=== PATIENT | female | born 1945 | race Native Hawaiian/Other Pacific Islander ===

== ENCOUNTER 2017-11-13 17:00 | Emergency (ER) | payer OTHER ==
[2017-11-13 17:16] VITALS: BP 167/75; PULSE 81; O2SAT 99
[2017-11-13] MEDS ORDERED: Oxycodone/Acetaminophen 5/325 mg Tab PO STA (19:48)
--- NOTE | 2017-11-13 19:52 | C.PDOC ---
History Of Present Illness 72 year old female, whose PMHx includes Diabetes, presents to the ED for evaluation of left rib pain which began after she sustained a fall yesterday. Patient states she was walking in her house when she slipped and fell down three steps. Her pain is worse with movement. Patient notes she hit the side of her head against the wall but denies loss of consciousness. Patient took Tylenol yesterday without help. She denies headache, dizziness, shortness of breath both prior/post fall. Time Seen by Provider: 11/13/17 17:31 Chief Complaint (Nursing): Medical Clearance History Per: Patient History/Exam Limitations: no limitations Onset/Duration Of Symptoms: Hrs Current Symptoms Are (Timing): Still Present Additional History Per: Patient Past Medical History Reviewed: Historical Data, Nursing Documentation, Vital Signs Vital Signs: Last Vital Signs Temp 98.6 F 11/13/17 19:52 Pulse 81 11/13/17 19:52 Resp 20 11/13/17 19:52 BP 167/75 H 11/13/17 19:52 Pulse Ox 99 11/13/17 22:01 - Medical History PMH: Diabetes Surgical History: No Surg Hx - [facility] TETANUS TOXOID ADMINIST (09/05/13) Family History: States: Unknown Family Hx - Social History Hx Tobacco Use: No Hx Alcohol Use: No Hx Substance Use: No - Immunization History Hx Tetanus Toxoid Vaccination: Yes Hx Influenza Vaccination: Yes Hx Pneumococcal Vaccination: No Review Of Systems Musculoskeletal: Positive for: Other (left rib pain ) Physical Exam - Physical Exam Appears: Non-toxic, No Acute Distress Skin: Normal Color, Warm, Dry Head: Atraumatic, Normacephalic Eye(s): bilateral: Normal Inspection Oral Mucosa: Moist Neck: Supple Chest: Symmetrical, No Deformity, Tenderness (to left posterolateral and anterior ribs ) Cardiovascular: Rhythm Regular, No Murmur Respiratory: Normal Breath Sounds, No Rales, No Rhonchi, No Wheezing Extremity: Normal ROM, Capillary Refill (less than 2 seconds ) Neurological/Psych: Oriented x3, Normal Speech, Normal Cognition ED Course And Treatment O2 Sat by Pulse Oximetry: 99 (on RA ) Pulse Ox Interpretation: Normal - Other Rad XR left ribs and AP chest X-Ray: Interpreted by Me, Viewed By Me, Read By Radiologist Interpretation: EXAM: XR Left Ribs and AP Chest, 3 or More Views. CLINICAL HISTORY: 72 years old, female; Pain; Chest wall pain; Left; Additional info: Hot wall, pain to left posterior and. ant ribs. TECHNIQUE: Frontal and oblique views of the left ribs and frontal view of the chest. COMPARISON: No relevant prior studies available. FINDINGS: Lungs: There is minimal left base atelectasis. Lungs are otherwise clear. Pleural space: Unremarkable. No pneumothorax. Heart: Unremarkable. No cardiomegaly. Mediastinum: Unremarkable. Bones/joints: Minimally displaced rib fractures are present on the left. These are noted involving the. sixth and seventh ribs. IMPRESSION: Displaced acute fractures of the left sixth and seventh ribs. No definite pneumothorax seen with this. technique. Left base atelectasis. Medical Decision Making Medical Decision Making: Progress: Left ribs and chest XR ordered and reviewed. Percocet PO and Toradol IM administered. pt much more comfortable after percocet. will dc with nsaids. percocet, incentive spirometer. discussed with Dr Sargent, she will f/u in his office this week Disposition Discussed With .: Sangita Sargent Doctor Will See Patient In The: Office Counseled Patient/Family Regarding: Studies Performed, Diagnosis, Need For Followup, Rx Given - Disposition Referrals: Sangita Sargent MD [Staff Provider] - Disposition: HOME/ ROUTINE Disposition Time: 20:22 Condition: IMPROVED Additional Instructions: Please take ibuprofen every 6 hours for pain. Take one tablet of Percocet every 4 hours if needed. Use incentive spirometer every 2 hours or more if tolerated. Follow up with Dr Sargent in the next few days. Return to ER for any worsening pain or difficulty breathing Prescriptions: Acetaminophen/Oxycodone Hydr [Oxycodone and Acetaminophen 325 mg-2.5 mg] 1 tab PO Q4 PRN #16 tab PRN Reason: Pain, Severe (8-10) Docusate Sodium [Colace] 100 mg PO BID #60 capsule Instructions: Rib Fracture (DC) Forms: General Discharge Instructions, [facility] ([place]), Work Excuse - Clinical Impression Clinical Impression: Ribs, multiple fractures - PA / [employer] / Resident Statement MD/DO has reviewed & agrees with the documentation as recorded. - Scribe Statement The provider has reviewed the documentation as recorded by the Scribe (Peggy Mitchell) All medical record entries made by the Scribe were at my direction and personally dictated by me. I have reviewed the chart and agree that the record accurately reflects my personal performance of the history, physical exam, medical decision making, and the department course for this patient. I have also personally directed, reviewed, and agree with the discharge instructions and disposition.
[2017-11-13 19:53] VITALS: RESP 20; TEMP 98.6
[2017-11-13] MEDS ORDERED: Oxycodone/Acetaminophen 5/325 mg Tab ONE (19:56)
--- NOTE | 2017-11-14 08:37 | RAD ---
PROCEDURE: Radiographs of the Chest and Left Ribs. HISTORY: hot wall, pain to left posterior and ant ribs COMPARISON: None available. TECHNIQUE: Frontal radiograph of the chest and multiple oblique radiographs of the left ribs were obtained. FINDINGS: LEFT RIBS: There are fractures of the left 3rd and 4th ribs posteriorly. There are fractures of the left 5th rib posteriorly and anteriorly and of the 6th and 7th ribs anteriorly. LUNGS: Clear. PLEURA: No pneumothorax or pleural fluid. CARDIOVASCULAR: Normal sized heart. No pulmonary vascular congestion. OTHER FINDINGS: None. IMPRESSION: Multiple left rib fractures. No pneumothorax.
== END 2017-11-13 20:42 | disposition home or self-care (01) ==
LOC: C.ER 17:00
DX: S22.42XA Multiple fractures of ribs, left side, initial encounter for closed fracture (principal); W10.9XXA Fall (on) (from) unspecified stairs and steps, initial encounter; Y92.009 Unspecified place in unspecified non-institutional (private) residence as the place of occurrence of the external cause
CPT/HCPCS: 71101; 96372; 99283; J1885

== ENCOUNTER 2018-10-02 12:00 | Outpatient (CLI) | payer OTHER | END 2018-10-02 12:01 | disposition home or self-care (01) | LOC: C.VASC 12:00 | DX: E11.9 Type 2 diabetes mellitus without complications (principal); E78.00 Pure hypercholesterolemia, unspecified; I10 Essential (primary) hypertension; I70.8 Atherosclerosis of other arteries; Z68.33 Body mass index [BMI] 33.0-33.9, adult ==

== ENCOUNTER 2018-10-04 10:35 | Outpatient (CLI) | payer OTHER | END 2018-10-04 10:36 | disposition home or self-care (01) | LOC: C.LAB 10:35 | DX: E11.9 Type 2 diabetes mellitus without complications (principal); E78.00 Pure hypercholesterolemia, unspecified; Z68.33 Body mass index [BMI] 33.0-33.9, adult; I70.8 Atherosclerosis of other arteries; I10 Essential (primary) hypertension ==

== ENCOUNTER 2018-10-27 13:21 | Outpatient (CLI) | payer OTHER | END 2018-10-27 13:22 | disposition home or self-care (01) | LOC: C.MAMMO 13:21 | DX: Z12.31 Encounter for screening mammogram for malignant neoplasm of breast (principal) ==